=== PATIENT | female | born 1945 | race Caucasian/White ===

== ENCOUNTER 2024-09-26 16:03 | Emergency (ER) | payer OTHER, SELFPAY ==
[2024-09-26 16:25] VITALS: BP 158/89
[2024-09-26 17:09] LABS: ALT (SGPT) 18 U/L (0-35); AST (SGOT) 27 U/L (14-36); Albumin 4.3 g/dl (3.5-5.0); Alkaline Phosphatase 67 U/L (38-126); Blood Urea Nitrogen 17 mg/dl (7-17); Calcium 9.6 mg/dl (8.4-10.2); Carbon Dioxide 23 mmol/L (22-30); Chloride 109 mmol/L (98-107); Glucose 83 mg/dl (70-99); Potassium 4.1 mmol/L (3.5-5.1); Sodium 140 mmol/L (135-145); Total Bilirubin 0.6 mg/dl (0.2-1.3); Total Protein 7.6 g/dl (6.3-8.2); eGFR > 60.00
[2024-09-26 17:19] LABS: Troponin I < 0.012 ng/ml
[2024-09-26 17:30] LABS: % Basophils 0.5 % (0-2); % Immature Granulocytes 0.1 % (0-0.5); % Lymphocytes 25.7 % (20.5-51.1); % Neutrophils 59.7 % (42.2-75.2); Absolute Eosinophils 0.2 10^3/uL (0-0.7); Absolute Lymphocytes 1.9 10^3/uL (1.2-3.4); Absolute Monocytes 0.9 10^3/uL (0.1-0.6); Absolute Neutrophils 4.4 10^3/uL (1.4-6.5); Hematocrit 38.1 % (37.0-47.0); Hemoglobin 13.2 g/dL (12.0-16.0); Mean Corp Hgb Conc. 34.6 g/dL (33.0-37.0); Mean Corpuscular Hgb 31.3 pg (27.0-31.0); Mean Corpuscular Volume 90.3 fL (81.0-99.0); Nucleated Red Blood Cells % 0 %; Platelet Count 117 10^3/uL (130-400); Red Blood Cell Count 4.22 10^6/uL (4.20-5.40); Red Cell Dist. Width 13.8 % (11.5-14.5); White Blood Cell Count 7.4 10^3/uL (4.8-10.8)
[2024-09-26 20:00] VITALS: BP 166/87
--- NOTE | 2024-09-26 20:20 | ED.GENMED ---
History of Present Illness
General
Chief Complaint: Extremity Pain (non-traumatic)
Source: patient
Exam Limitations: none
Time Seen by Provider: 09/26/24 19:42
Nursing documentation reviewed up to this point in time: agreed with
History of Present Illness
History of Present Illness:
see MDM
Past History
Past History
ED Past Medical History: HTN, Other (MCNEAL-stopped going to [employer] [employer] at [facility] few yrs ago) and Other (neuropathy, balance problems)
ED Past Surgical History: Gynecological and Orthopedic
Social History
Tobacco: Non-smoker
Alcohol: None
Drug: None
Personal:
Living: with family
Employment: Employed
Family History
Family History: Hypertension
Review of Systems
Review of Systems
Allergies reviewed?: Yes
All Other Systems: Not applicable
Phy Exam
Physical Exam
Physical Exam:
GENERAL: Alert , in no apparent distress
EYE: pupils equal and reactive
NECK: Supple
ENT: o/p clr, mmm.
CARDIAC: Regular rate and rhythm .
LUNGS: Clear breath sounds bilaterally, no acute respiratory distress, no wheezes/rales/rhonchi
ABDOMEN: Soft, without focal tenderness, no r/g, no cvat, normal bowel sounds
NEUROLOGICAL: Alert and oriented, no focal neuro deficits
hyepracusis to touch of the skin around the rash L elbow and L upper back trapezius region
SKIN: Warm and dry, skin intact.
cluster of vesicles to L lateral elbow region along lateral epicondyle with erythematous base;
MUSCULOSKELETAL: no edema appreciated to L arm
'normal pulse
full ROM of the elbow but some pain with flexion and lateral epicondyle tenderness
no efffusino
left scapula also tender to touch but seems to be more skin sensitive
can fully range the arm and shoudler and neck
no midline tenderness
PSYCH: Normal and appropriate interaction.
Course
Orders/Labs/Results
Orders:
Orders
09/26/24 16:27
Electrocardiogram (*1) Urgent
Reason for Study: Chest Pain
EKG- Treatment ONCE
09/26/24 16:41
Complete Blood Count/With Diff Urgent
Comprehensive Metabolic Panel Urgent
Troponin I Urgent
09/26/24 20:02
Venous Doppler Upr Ext Left [US Periph Venous UPPER Ext LT] Urgent
Comment:
Reason For Exam: left arm swelling
09/26/24 20:03
CR Chest - 2 Views Urgent
Comment:
Reason For Exam: left sided chest/aack pain
Elbow, 3 view, Left [CR Elbow - Left Min 3 Views ] Urgent
Comment:
Reason For Exam: left elbow pain
09/26/24 21:34
Acetaminophen [Tylenol] 1,000 mg PO NOW STA
Valacyclovir HCl [Valtrex] 1,000 mg PO NOW STA
Abnormal Lab Results
09/26/24
16:41
MCH 31.3 H pg
(27.0-31.0)
Plt Count 117 L 10^3/uL
(130-400)
Absolute Monos (auto) 0.9 H 10^3/uL
(0.1-0.6)
Monocytes % 12.0 H %
(1.7-9.3)
Chloride 109 H mmol/L
(98-107)
09/26/24 16:41
09/26/24 16:41
Vital Signs
Initial and Last Documented VS:
Initial Vital Signs
Temp Pulse Resp BP Pulse Ox
36.9 C 82 18 158/89 98
09/26/24 16:25 09/26/24 16:25 09/26/24 16:25 09/26/24 16:25 09/26/24 16:25
Last Documented Vital Signs
Temp Pulse Resp BP Pulse Ox
36.9 C 74 18 140/66 98
09/26/24 16:25 09/26/24 22:48 09/26/24 22:48 09/26/24 22:48 09/26/24 22:48
MDM/Problems Addressed
Differential Diagnosis Includes:
see MDM
MDM/Problems Addressed:
Note:
CHIEF COMPLAINT(S)
Painful swelling and rash on the arm with radiation to the shoulder and back.
HISTORY OF PRESENT ILLNESS
The patient is a 79-year-old female who presents with a painful lesion and swelling on her arm, which she noticed upon waking. She describes a burning sensation upon touching the area and swelling of the arm. The pain radiates from her shoulder to
the back. She denies any recent trauma, falls, or significant outdoor activities that could have led to insect bites. The patient mentions it does not hurt when the area is touched, but she experiences discomfort when raising her arm above her head,
with pain from her neck to her shoulder blades. She speculates it could be a result of sleeping in an awkward position.
denies shortness of breath, fever, chills, h/o blood clots
CHRONIC MEDICAL CONDITIONS SIGNIFICANTLY AFFECTING CARE
The patient has a history of peripheral neuropathy, experiencing pain only upon touching her feet or legs. 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
PHYSICAL EXAM
- Skin: Rash on the arm with swelling.
- Musculoskeletal: Pain on movement, especially when raising the arm above the head; discomfort extending from neck to shoulder blades.
Nursing notes reviewed and vital signs reviewed.
PLAN
The plan should include further evaluation to confirm the diagnosis of shingles and management of the symptoms, considering potential antiviral treatment and pain management options.
DIFFERENTIAL DIAGNOSIS
The Differential Diagnosis includes, in no particular order and is not limited to:
1. Herpes Zoster (Shingles)
2. Insect Bite
3. Contact Dermatitis
4. Cellulitis
5. Tendinitis
6. Cervical Radiculopathy
7. Brachial Plexopathy
8. Rotator Cuff Tear
9. Herpes Simplex Virus Infection
10. Lymphedema
Note:
CARE-UPDATE
09/26/24 - 22:48
Ultrasound shows no clot, and x-ray confirms old compression fractures without any new findings. A tiny sliver of bone near the right elbow, suspected to be an avulsion, noted; potentially linked to calcification or past trauma like the arm fracture
three years ago. The pain considered possibly due to calcific tendinitis rather than an active fracture. Suspicion of shingles due to tenderness and sensitivity around the area, with advice to monitor for associated rash. Recommended using a sling
for comfort if desired, but patient might find it irritating against the sensitive skin. Emphasis on managing pain with Advil due to preference and liver considerations. No significant intervention for peripheral neuropathy signs discussed, though
monitoring suggested, particularly if signs of a rash develop or systemic symptoms appear, such as fever or shortness of breath. Follow-up with family doctor advised.
*Critical Care Note
Total Time (30-74mins, 75-104mins- exclusive of procedures): Not Applicable
ED Attending Note
-
Portions of this chart may have been created with voice recognition software.� Occasional wrong word or��sound alike� substitutions may have occurred due to the inherent limitations of voice recognition software.
Discharge Plan
Departure
Patient Disposition: Home (Routine Discharge)
Date of Disposition: 09/26/24
Time of Disposition: 22:48
Patient with high blood pressure during this ER visit?: Yes
Condition: Fair
Covid-19: Not Applicable
Discharge Problem:
Shingles, Elbow pain
Instructions: Shingles, BLOOD PRESSURE
Prescriptions:
New
valacyclovir 1 gram tablet
1,000 mg PO Q8H Qty: 21 0RF
No Action
ondansetron 4 MG tablet,disintegrating
4 mg PO TIDPRN PRN (Reason: NAUSEA) Qty: 21 0RF
tramadol 50 MG tablet
50 mg PO Q6HPRN PRN (Reason: severe pain) Qty: 12 0RF
Referrals:
Gustavo Kumar MD [Family Provider, [facility]]
Activity Restrictions/Additional Instructions:
This rash is very suspicious for shingles. You are sensitive to touch in this area and the x-ray did show a tiny sliver off of the radial head that could be an avulsion fracture however you had no trauma recently so this is less likely. You could
have a calcific tendinitis there. However I do feel that most of your pain is just nerve related due to the shingles. Try Valtrex 3 times a day for 7 days. Take ibuprofen every 8 hours for pain. Follow-up with your family doctor. Have a low
threshold for returning for fever, chest pain, worsening shortness of breath or arm swelling or weakness etc.
You can consider following up with orthopedics due to the elbow pain and x-ray finding as well. You could wear the sling for couple of days to see if this helps with pain
. Be sure to move your shoulder every now and then to avoid frozen shoulder.
Interventions
Interventions:
*Risk Screen - Suicide Last Done: 09/26/24 20:30
*General Assessment Last Done: 09/26/24 20:30
*Neglect/Abuse Screening Last Done: 09/26/24 20:30
*ED- Fall Risk Assessment Last Done: 09/26/24 20:30
*ED COVID-19 Vaccine History Last Done: 09/26/24 20:30
*Nursing Disposition Last Done: 09/26/24 23:00
ED-Skin Assessment Last Done: 09/26/24 20:30
ED-Peripheral Vascular Assessment Last Done: 09/26/24 20:30
ED-Musculoskeletal Assessment Last Done: 09/26/24 20:30
Discharge Date and Time
Discharge Date/Time: 09/26/24 23:00
Print Language: [place]
[2024-09-26] MEDS: TYLENOL 1000 MG PO (21:55)
[2024-09-26] MEDS: VALTREX 1000 MG PO (21:56)
[2024-09-26 22:00] VITALS: BP 161/78
[2024-09-26 22:48] VITALS: BP 140/66
== END 2024-09-26 23:00 | disposition home or self-care (01) ==
LOC: EMR 16:03
PROVIDERS: EMERGENCY PHYSICIAN Emergency Medicine; FAMILY PHYSICIAN Family Medicine
DX: B02.9 Zoster without complications (principal); M25.522 Pain in left elbow; M79.89 Other specified soft tissue disorders; M54.2 Cervicalgia; M79.602 Pain in left arm; M54.6 Pain in thoracic spine; I10 Essential (primary) hypertension; K75.81 Nonalcoholic steatohepatitis (NASH); G62.9 Polyneuropathy, unspecified
CPT/HCPCS: 99285; 71046; 73080; 80053; 84484; 85025; 93005; 93971

== ENCOUNTER 2025-01-01 23:40 | Inpatient (IN) | payer OTHER, SELFPAY ==
[2025-01-01 14:25] VITALS: BP 150/90
[2025-01-01] MEDS: NSS 500 IV (15:23)
--- NOTE | 2025-01-01 15:31 | ED.GENMED ---
History of Present Illness
<SIMONE Perez Jr. Last Filed: 01/01/25 23:07>
General
Chief Complaint: Abdominal Pain
Source: patient
Exam Limitations: none
Time Seen by Provider: 01/01/25 15:05
Nursing documentation reviewed up to this point in time: agreed with
History of Present Illness
History of Present Illness:
79-year-old female past ministry of hypertension presenting to the emergency department today with concerns of upper abdominal pain starting last night with associated nausea and vomiting. Vomiting total of 10 times no blood no additional concerns.
No diarrhea or changes in bowel movements. No fevers no chest pain no shortness of breath. Denies similar symptoms in the past.
Past History
<SIMONE Perez Jr. Last Filed: 01/01/25 23:07>
Past History
ED Past Medical History: HTN, Other (MCNEAL-stopped going to Cardiac [facility] at [facility] few yrs ago) and Other (neuropathy, balance problems)
ED Past Surgical History: Gynecological and Orthopedic
Social History
Tobacco: Non-smoker
Alcohol: None
Drug: None
Personal:
Living: with family
Employment: Employed
Family History
Family History: Hypertension
Review of Systems
<SIMONE Perez Jr. Last Filed: 01/01/25 23:07>
Review of Systems
Allergies reviewed?: Yes
All Other Systems: ROS reviewed and negative except as documented in HPI and ROS
Phy Exam
<SIMONE Perez Jr. Last Filed: 01/01/25 23:07>
Physical Exam
Physical Exam:
GENERAL: Alert , in no apparent distress
EYE: pupils equal and reactive
NECK: Supple, no significant adenopathy.
ENT: o/p clr, mmm.
CARDIAC: Regular rate and rhythm .
LUNGS: Clear breath sounds bilaterally, no acute respiratory distress, no wheezes/rales/rhonchi
ABDOMEN: Epigastric and right upper quadrant abdominal tenderness to palpation otherwise soft abdomen
NEUROLOGICAL: Alert and oriented, no focal neuro deficits
SKIN: Warm and dry, skin intact.
MUSCULOSKELETAL: No edema, well perfused.
PSYCH: Normal and appropriate interaction.
Course
<Bassem Lima Jr., PA-C - Last Filed: 01/01/25 23:07>
Orders/Labs/Results
Orders:
Orders
01/01/25 14:28
Electrocardiogram (*1) Urgent
Reason for Study: Chest Pain
Cardiac Monitoring- Treatment ONCE
EKG- Treatment ONCE
O2 Therapy [RESP] Urgent
Titrate/Wean O2 to maintain O2 sat greater than (%): 90
Special Instructions: Maintain sats >/=90%
Pulse Ox/spot Check [RESP] Urgent
Quantity: 1
Special Instructions: ON ROOM AIR
01/01/25 15:17
Ketorolac [Toradol] 15 mg IV NOW STA
01/01/25 15:18
CT Abd/Pel (IV only)-DH only Urgent
Comment:
Reason For Exam: upper abd/diffuse pain
0.9% Sodium Chloride 500 ml [Nss] 500 ml IV BOLUS
01/01/25 15:21
Complete Blood Count/With Diff Urgent
Comprehensive Metabolic Panel Urgent
Lipase Urgent
Manual Differential Urgent
Troponin I Urgent
01/01/25 18:48
US Abdomen Complete/Upper Urgent
Comment:
Reason For Exam: RUQ pain abnormal CT
01/01/25 19:23
Lactic Acid Urgent
01/01/25 21:53
Ketorolac [Toradol] 15 mg IV NOW STA
Piperacillin/Tazo 4.5 Gram [Zosyn] 4.5 gram in 100 ml IV NOW
01/01/25 22:03
Chest X-ray Portable [CR Chest Portable - 1 View] Urgent
Comment:
Reason For Exam: sob
Reason Study Needs to be Portable: Patient Unstable
Abnormal Lab Results
01/01/25
15:21
WBC 20.2 H 10^3/uL
(4.8-10.8)
MPV 13.9 H fL
(7.4-10.4)
Abs Neuts (Manual) 16.9 H 10^3/uL
(1.4-6.5)
Segmented Neutrophils 84 H %
(42-75)
Lymphocytes (Manual) 10 L %
(20-51)
Sodium 134 L mmol/L
(135-145)
Glucose 138 H mg/dl
(70-99)
01/01/25 15:21
01/01/25 15:21
Vital Signs
Initial and Last Documented VS:
Initial Vital Signs
Temp Pulse Resp BP Pulse Ox
99.9 F 127 18 150/90 94
01/01/25 14:25 01/01/25 14:25 01/01/25 14:25 01/01/25 14:25 01/01/25 14:25
Last Documented Vital Signs
Temp Pulse Resp BP Pulse Ox
99.9 F 97 27 141/82 94
01/01/25 14:25 01/01/25 22:00 01/01/25 22:00 01/01/25 22:00 01/01/25 17:15
Lottielt;eJsús Alejo DO - Last Filed: 01/01/25 22:05>
Orders/Labs/Results
Orders:
Orders
01/01/25 14:28
Electrocardiogram (*1) Urgent
Reason for Study: Chest Pain
Cardiac Monitoring- Treatment ONCE
EKG- Treatment ONCE
O2 Therapy [RESP] Urgent
Titrate/Wean O2 to maintain O2 sat greater than (%): 90
Special Instructions: Maintain sats >/=90%
Pulse Ox/spot Check [RESP] Urgent
Quantity: 1
Special Instructions: ON ROOM AIR
01/01/25 15:17
Ketorolac [Toradol] 15 mg IV NOW STA
01/01/25 15:18
CT Abd/Pel (IV only)-DH only Urgent
Comment:
Reason For Exam: upper abd/diffuse pain
0.9% Sodium Chloride 500 ml [Nss] 500 ml IV BOLUS
01/01/25 15:21
Complete Blood Count/With Diff Urgent
Comprehensive Metabolic Panel Urgent
Lipase Urgent
Manual Differential Urgent
Troponin I Urgent
01/01/25 18:48
US Abdomen Complete/Upper Urgent
Comment:
Reason For Exam: RUQ pain abnormal CT
01/01/25 19:23
Lactic Acid Urgent
01/01/25 21:53
Ketorolac [Toradol] 15 mg IV NOW STA
Piperacillin/Tazo 4.5 Gram [Zosyn] 4.5 gram in 100 ml IV NOW
01/01/25 22:03
Chest X-ray Portable [CR Chest Portable - 1 View] Urgent
Comment:
Reason For Exam: sob
Reason Study Needs to be Portable: Patient Unstable
Abnormal Lab Results
01/01/25
15:21
WBC 20.2 H 10^3/uL
(4.8-10.8)
MPV 13.9 H fL
(7.4-10.4)
Abs Neuts (Manual) 16.9 H 10^3/uL
(1.4-6.5)
Segmented Neutrophils 84 H %
(42-75)
Lymphocytes (Manual) 10 L %
(20-51)
Sodium 134 L mmol/L
(135-145)
Glucose 138 H mg/dl
(70-99)
01/01/25 15:21
01/01/25 15:21
Vital Signs
Initial and Last Documented VS:
Initial Vital Signs
Temp Pulse Resp BP Pulse Ox
99.9 F 127 18 150/90 94
01/01/25 14:25 01/01/25 14:25 01/01/25 14:25 01/01/25 14:25 01/01/25 14:25
Last Documented Vital Signs
Temp Pulse Resp BP Pulse Ox
99.9 F 97 27 141/82 94
01/01/25 14:01/01/25 22:00 01/01/25 22:00 01/01/25 22:00 01/01/25 17:15
<Bassem Lima Jr., PA-C - Last Filed: 01/01/25 23:07>
MDM/Problems Addressed
MDM/Problems Addressed:
79-year-old female presenting to the emergency department today with concerns of upper abdominal pain maximal to the right upper quadrant and epigastric region. Symptoms started last night roughly 16 hours prior to arrival associated nausea and
vomiting. No ongoing nausea at this point. Patient with recurrent of right upper quadrant abdominal pain here requiring additional dose of Toradol. CT scan showing concerning findings of potential early acute cholecystitis radiology recommending
ultrasound. This was ordered as well. Technically difficult study to read but did have some gallbladder wall thickening. Case was discussed with general surgery patient will be admitted with IV antibiotics and monitoring for surgical consultation
tomorrow.
<Bassem Lima Jr., PA-C - Last Filed: 01/01/25 23:07>
*Pulse Oximetry
SaO2: 94
Oxygen Mode of Delivery: Room air
Patient hypoxic: no (94)
*Critical Care Note
Total Time (30-74mins, 75-104mins- exclusive of procedures): Not Applicable
ED Attending Note
<Bassem Lima Jr., PA-C - Last Filed: 01/01/25 23:07>
-
Portions of this chart may have been created with voice recognition software.� Occasional wrong word or��sound alike� substitutions may have occurred due to the inherent limitations of voice recognition software.
<Jesús Alejo DO - Last Filed: 01/01/25 22:05>
ED Attending Note
Patient seen and examined by attending physician: Yes
I performed the substantive portion of visit, reviewed & personally made and approve the management plan that is documented in note by myself or BOGDAN.: Yes
I performed a history and physical exam of patient and discussed management with resident, I reviewed resident's note and agree with documented findings and plan of care.: Yes
ED Attending Note:
79-year-old female presents the ER for evaluation of upper abdominal discomfort along with repetitive emesis which started last night after she had eaten some broiled zucchini with bread. Patient denies any prior history of similar discomforts.
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 She denies any fevers. Vital signs reviewed, patient is awake, alert, obese, appears uncomfortable with mild tachypnea at time of
exam, sclera anicteric, mucous membranes tacky, abdomen is soft with localized pain on palpation right upper quadrant, positive Munson's, extremities without edema, GCS is 15. I reviewed all test results with physician phys assistant. Case had been
reviewed with on-call surgeon by JOSE who is in agreement with plan for admission to medicine service for further evaluation. IV abx administered. Will add chest x-ray given tachypnea and mild hypoxia at current.
Discharge Plan
Departure
Patient Disposition: Admit
Date of Disposition: 01/01/25
Time of Disposition: 23:07
Admit to: Med/Surg
Admit to doctor: Familia
Presentation/result/management discussed w/ accepting MD/DO: Hospitalist
Patient with high blood pressure during this ER visit?: No
Condition: Good
Covid-19: Not Applicable
Discharge Problem:
Acute cholecystitis
Prescriptions:
No Action
lisinopril 20 mg Tablet
20 mg PO DAILY
Rx Instructions:
pt has been noncompliant for several months
Referrals:
Maurizio Blake, [Family Provider, Family Practice]
Interventions
Interventions:
*Risk Screen - Suicide Last Done: 01/01/25 14:25
*General Assessment Last Done: 01/01/25 17:06
*Neglect/Abuse Screening Last Done: 01/01/25 17:06
*ED- Fall Risk Assessment Last Done: 01/01/25 17:06
*ED COVID-19 Vaccine History Last Done: 01/01/25 17:06
FX-Hccfql-Lenfiuwy[facility] Assessment Last Done: 01/01/25 17:06
Discharge Date and Time
Print Language: UKRAIN[place]
[2025-01-01] MEDS: TORADOL 15 MG IV ×2 (15:32→21:59)
[2025-01-01 15:59] LABS: Hematocrit 41.3 % (37.0-47.0); Hemoglobin 14.2 g/dL (12.0-16.0); Mean Corp Hgb Conc. 34.4 g/dL (33.0-37.0); Mean Corpuscular Volume 90.2 fL (81.0-99.0); Platelet Count 143 10^3/uL (130-400); Red Cell Dist. Width 12.8 % (11.5-14.5)
[2025-01-01 16:03] LABS: Absolute Neutrophils -Man Diff 16.9 10^3/uL (1.4-6.5); Anisocytosis Slight; Macrocytosis 1+; Normal RBC Morphology No; Platelets Checked Yes
[2025-01-01 16:07] LABS: Stomatocytes 1+; Total Cells Counted 100
[2025-01-01 16:08] LABS: ALT (SGPT) 18 U/L (0-35); AST (SGOT) 31 U/L (14-36); Albumin 4.4 g/dl (3.5-5.0); Alkaline Phosphatase 58 U/L (38-126); Blood Urea Nitrogen 13 mg/dl (7-17); Calcium 10.1 mg/dl (8.4-10.2); Carbon Dioxide 22 mmol/L (22-30); Chloride 102 mmol/L (98-107); Glucose 138 mg/dl (70-99); Lipase 85 U/L (23-300); Potassium 4.3 mmol/L (3.5-5.1); Sodium 134 mmol/L (135-145); Total Protein 8.1 g/dl (6.3-8.2); eGFR > 60.00
[2025-01-01 16:09] LABS: Troponin I 0.012 ng/ml
[2025-01-01 17:11] VITALS: BP 123/71
[2025-01-01 17:14] VITALS: BMI 32.3
[2025-01-01 22:00] VITALS: BP 141/82
[2025-01-01] MEDS: ZOSYN 100 IV (22:00)
[2025-01-01 23:00] VITALS: BP 125/62
--- NOTE | 2025-01-01 23:21 | HPS.HSE ---
Addendum entered and electronically signed by Nadeem Barbosa DO 01/02/25 00:02:
Patient seen and examined independently. Agree with findings and plan as set forth by SARY De La Rosa.
Patient is a 79y F with PMH significant for obesity, hypertension and peripheral neuropathy who presents to ED complaining of RUQ abdominal pain with associated N/V that started last evening. Patient states that emesis was frequent and persisted
overnight. She had intermittent pain and nausea throughout the day today ans presented to the ED for further evaluation. No subjective fevers / chills. No prior h/o similar symptoms.
Evaluation in the ED reveals RUQ tenderness with imaging suggesting gallbladder inflammation.
Ass:
Acute Cholecystitis
Sepsis secondary to the above
Benign Hypertension
Peripheral Neuropathy
Chronic Ambulatory Dysfunction
Obesity due to excess calories
Plan:
Admit for further evaluation and treatment.
NPO, IVFs, IV abx.
Surgery consulted for additional recommendations / probable cholecystectomy.
Continue outpatient lisinopril with holding parameters.
Pain control, supportive care, etc.
Original Note:
Family Physician
-
Family Physician: Maurizio Blkae
Chief Complaint
-
Right upper quadrant or left upper quadrant pain with nausea and vomiting since last night
History of Present Illness
79-year-old female who lives alone at home states she had zucchini roasted in the oven for dinner then around 10:30 at night she developed right upper quadrant pain extending to left upper quadrant with persistent vomiting until 5:30 in the AM.She
reports pain still persisted today along with nausea. She denies fever, chills, chest pain, palpitations, cough, shortness of breath, diarrhea, urinary symptoms. She has past medical history of hypertension, peripheral neuropathy, frequent falls,
chronic ambulatory dysfunction uses walker, hepatomegaly/MCNEAL.
Medical History
Past Medical History
Past Medical History: Reports Other
Additional Past Medical History:
Hypertension
Hepatomegaly/MCNEAL used to follow at [facility] but stopped
Peripheral neuropathy
Frequent falls
Chronic ambulatory dysfunction uses wheelchair
Class I obesity
Past Surgical History: Reports Other
Additional Past Surgical History:
Left knee surgery
Right ankle and heel repair
Social History
Tobacco: Non-smoker
Alcohol: None
Drug: None
Personal: Single
Living: Alone
Employment: Retired
Family History
Family History: Other (Sister history of gallstones status postcholecystectomy)
Allergies / Home Medications
Allergies reflects when Allergies were last updated in [facility].
Home Medications with original date entered in [facility]
Allergy/Medication List:
Allergies
Allergy/AdvReac Type Severity Reaction Status Date / Time
No Known Allergies Allergy Verified 12/22/13 15:48
Home Medications
lisinopril 20 mg tablet 20 mg PO DAILY 01/01/25
Review of Systems
-
History Source: Patient
A 12 point ROS was completed and negative except as noted: Yes
Constitutional: Denies Fever or Chills
Respiratory: Denies Cough or Trouble Breathing
Cardiac: Denies Chest Pain, Diaphoresis, Palpitations or Syncope
Abdomen/GI: Reports Abdominal Pain (Right upper quadrant to left upper quadrant), Nausea and Vomiting; Denies Diarrhea or Constipated
: Denies Dysuria, Frequency, Flank Pain, Incontinence or Difficulty Voiding
Musculoskeletal: Reports Edema (+1 nonpitting bilateral lower legs); Denies Joint Pain
Skin: Denies Itching or Rash
Neurological: Denies Dizzy or Headache
Endocrine: Reports No Symptoms
Hematologic/Lymphatic: Reports No Symptoms
Psych: Reports Calm
Physical Exam
Vital Signs
Vital Signs
Temp Pulse Resp BP Pulse Ox
99.9 F 97 27 141/82 94
01/01/25 14:25 01/01/25 22:00 01/01/25 22:00 01/01/25 22:00 01/01/25 17:15
Physical Exam
General: Fever (99.9 F) and Obese; No Chills
HEENT: NormoCephalic, Anicteric, PERRLA, [place] Conjunctivae, No Ptosis and Other (Dry oral mucosa)
Respiratory: Clear; No Wheezes, Rales or Rhonchi
Cardiac: S1/S2, Regular Rhythm and Peripheral Edema (+1 nonpitting bilateral lower legs); No Murmur, Rub or Gallop
Breast: Deferred by me
GI: Soft, Non Distended, Normal Bowel Sounds, Tender (Right upper quadrant) and No Hepatosplenomegaly
Rectal: Deferred by Provider
Genito-urinary: Deferred by me
Musculoskeletal: No Clubbing, No Cyanosis, Edema, Left Lower Extremity (+1 nonpitting) and Edema, Right Lower Extremity (+1 nonpitting); No Edema, Left Upper Extremity or Edema, Right Upper Extremity
Skin: Warm and Dry; No Rash or Jaundice
Neuro: AO x 3, Cranial Nerves Intact and Other (Chronic ambulatory dysfunction due to peripheral neuropathy/falls uses wheelchair); No Slurred Speech, Facial Droop, Tremors or Sedated
Psych: Calm
Laboratory Results
-
01/01/25 15:21
01/01/25 15:21
Laboratory Results
Lactic Acid 1.1 mmol/L (0.7-2.0) 01/01/25 19:23
Total Bilirubin 1.3 mg/dl (0.2-1.3) 01/01/25 15:21
AST 31 U/L (14-36) 01/01/25 15:21
ALT 18 U/L (0-35) 01/01/25 15:21
Alkaline Phosphatase 58 U/L (38-126) 01/01/25 15:21
Troponin I 0.012 ng/ml 01/01/25 15:21
Lipase 85 U/L (23-300) 01/01/25 15:21
Data Reviewed
-
CT Scan: Report Reviewed by me
Lab Data: Labs Reviewed by me
Impression/Plan
-
Impression/plan:
Admit to [facility]
#Sepsis 2/2 acute cholecystitis
#History of hepatomegaly/MCNEAL used to follow at [facility] but stopped
WBC 20.2 with left shift, 99.9 F, HR 97, lactic acid 1.1
-Check lipid profile
-Consult general surgery-Dr. Velázquez aware
- ultrasound abdomen was attempted but patient had difficulty with exam
-N.p.o.
-IV NSS 1 L given in ER, continue IV NSS 80 cc an hour
- IV Toradol given in ER
- Tylenol for fever, Toradol moderate pain, Dilaudid severe pain
- IV Zosyn
-Follow CBC, CMP
CT abdomen pelvis:
1. Gallstones. Increased in number. Questionable secondary findings to suggest
acute cholecystitis. New. Abdominal ultrasound recommended.
2. Bilateral too small to characterize hypodense renal lesions likely benign cysts.
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 Stable
3. Mild diverticulosis. Stable
4. Hepatomegaly. Stable
#Hypertension
BP 141/82
Continue lisinopril 20 mg daily
#Peripheral neuropathy
#Frequent falls
#Chronic ambulatory dysfunction uses wheelchair
-Fall precautions
- Consult PT
#Class I obesity�BMI 32
Affects all aspects of care
Weight loss recommended
DVT prophylaxis
Subcu heparin
Full code
[2025-01-02] VITALS: BP 116/59
[2025-01-02 01:08] VITALS: BMI 33.2
[2025-01-02] MEDS: NSS 1000 IV ×2 (01:21→15:23)
[2025-01-02 01:22] VITALS: BP 137/65
--- NOTE | 2025-01-02 01:40 | PTCARENOTE ---
Pt arrived to 2 South from ED via personal wheelchair @ 0108. Stood and pivoted assist x1 to bed w/o complication. AAOx3. Pt c/o sob as well as having an audible wheeze on RA sating at 91%. 2L nc applied. Admission assessment completed. IVF
initiated per order. NPO for surgical consult and possible OR. Plan of care reviewed w/ pt. Pt oriented to room, call calhoun within reach, bed locked and in lowest position. Care ongoing.
[2025-01-02] MEDS: ZOSYN 50 IV ×4 (03:05→22:24)
[2025-01-02] MEDS: DILAUDID 0.5 MG IV ×2 (03:59→20:53)
--- NOTE | 2025-01-02 05:54 | PTCARENOTE ---
Addendum entered by Mell Dominguez RN 01/02/25 06:23:
After duoneb treatment, pt more comfortable. Toradol given for pain. Oxygen sat 96% on 3L nc. Care ongoing.
Original Note:
Pt c/o extreme shortness of breath. Oxygen sat was 88% on 2L nc. Re-positioned pt upright in bed, put her on 4L nc. Oxygen sat went to 95%. Educated pt on breathing in through nose. [employer] TECHNICIAN notified and aware of change. Duoneb ordered. Respiratory
notified via TT. Pt to remain on 4L nc. Care ongoing.
[2025-01-02] MEDS: DUONEB 3 ML INH (06:05)
[2025-01-02] MEDS: TORADOL 15 MG IV (06:18)
[2025-01-02 07:00] LABS: Hematocrit 38.1 % (37.0-47.0); Hemoglobin 13.2 g/dL (12.0-16.0); Mean Corp Hgb Conc. 34.6 g/dL (33.0-37.0); Mean Corpuscular Volume 92.9 fL (81.0-99.0); Nucleated Red Blood Cells % 0 %; Platelet Count 108 10^3/uL (130-400); Red Cell Dist. Width 13.0 % (11.5-14.5)
[2025-01-02 07:05] VITALS: BP 128/71
[2025-01-02 07:13] LABS: ALT (SGPT) 18 U/L (0-35); AST (SGOT) 29 U/L (14-36); Albumin 3.8 g/dl (3.5-5.0); Alkaline Phosphatase 60 U/L (38-126); Calcium 9.4 mg/dl (8.4-10.2); Carbon Dioxide 26 mmol/L (22-30); Chloride 104 mmol/L (98-107); Estimated Creatinine Clearance 50 ml/min; Glucose 114 mg/dl (70-99); HDL Cholesterol 36 mg/dl; LDL Cholesterol, Calculated 76 mg/dl; Potassium 4.2 mmol/L (3.5-5.1); Sodium 136 mmol/L (135-145); Total Protein 7.1 g/dl (6.3-8.2); Very Low Density Lipoprotein 17 mg/dl (0-30); eGFR 58.02
[2025-01-02 07:21] LABS: Blood Urea Nitrogen 18 mg/dl (7-17)
[2025-01-02 07:32] LABS: Reticulocyte Count 2.5 % (0.4-2.8)
[2025-01-02 07:54] LABS: LDH 207 U/L (120-246)
--- NOTE | 2025-01-02 08:16 | W.PN.HOSP.TC ---
Today's Communication/Plan
-
see PN
Assessment / Plan
Assessment / Plan
79yo F with PMHx of HTN came with 48h of RUQ abd pain and vomiting, presenting with classic clinical signs of cholecystitis
A/P:
#Acute cholecystitis
#Mild bilirubinemia
CT and US abd showed concern for cholecystitis, however no stones identified
Discussed elevated bili with GenSx - will need periOP cholangiogram
cont Abx
NPO and advance diet when appropriate
ZOsyn
Follow LFT
pain mgmt and antiemetics
#Essential HTN
cont lisinopril
DVT ppx hep
Full code
I have spent at least 51min reviewing chart, test results, communication with consultants and providing direct patient care
Anticipated Discharge: > 48 hours
Subjective/Interval History
-
Date of Service: January 02, 2025
Objective Data
-
Labs:
Laboratory Results
01/02/25
06:37
WBC 17.1 H
Hgb 13.2
Hct 38.1
Plt Count 108 L D
Sodium 136
Potassium 4.2
Chloride 104
Carbon Dioxide 26
BUN 18 H
Creatinine 1.0
Glucose 114 H
Calcium 9.4
Total Bilirubin 1.9 H
AST 29
ALT 18
Alkaline Phosphatase 60
Vital Signs:
Vital Signs
Temp Pulse Resp BP Pulse Ox
97.9 F 82 22 137/65 95
01/02/25 01:22 01/02/25 06:09 01/02/25 06:09 01/02/25 01:22 01/02/25 06:09
I&O
01/01/25 01/02/25 01/03/25
06:59 06:59 06:59
Intake Total 450 / 450
Balance 450 / 450
Review of Systems
-
History Source: Patient
All other systems: Reviewed and negative
Abdomen/GI: Reports Abdominal Pain and Vomiting
Physical Exam
-
General: No Apparent Distress
HEENT: Normocephalic
Respiratory: Clear to Auscultation
Cardiac: Regular Rhythm
GI: Tender (RUQ)
Skin: Warm
Neuro: Awake, Alert, Oriented and AO x 3
Psych: Calm
[2025-01-02] MEDS: HEPARIN 5000 UNITS SC ×2 (08:56→20:50)
[2025-01-02] MEDS: ZESTRIL PO (08:57)
--- NOTE | 2025-01-02 08:57 | CON.GS ---
Consultation
-
Date/Time Consultation Requested: 01/01/2025, 23:39
Date/Time Consultation Performed: 01/01/2025, 08:00
Requesting Provider: Zofia Mccullough
Performing Provider: Ciro Velázquez MD
Reason for Consultation: acute cholecystitis
Medical History
-
Chief Complaint: RUQ pain
History of Present Illness:
79yo female with a PMH of MCNEAL, peripheral neuropathy and obesity presents to [place] [facility] late last night complaining of RUQ pain. It started after she at dinner around 10:30pm two nights ago. The pain started in the RUQ and extended to LUQ. She
vomited until yesterday AM. The rest of the day she had persistent nausea. In the ER her WBC was 20.2. CT A/P showed Gallstones. Increased in number. Questionable secondary findings to suggest acute cholecystitis. New. Bilateral too small to
characterize hypodense renal lesions likely benign cysts. 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 Stable. She then underwent an ultrasound which showed ' Somewhat limited evaluation of the soft tissues the upper abdomen
including the liver and gallbladder without findings to confirm cholelithiasis although limited. Visualized gallbladder wall mildly thickened at 0.4 cm. Indeterminate sonographic Munson's sign. No findings to suggest biliary tract dilatation'. Today
her WBC is down to 17.1. Her vitals remain normal. Given these findings, we have been consulted for surgical opinion.
Past Medical History
Past Medical History: HTN and Other (Hepatomegaly/MCNEAL, Peripheral neuropathy, Chronic ambulatory dysfunction, obesity)
Past Surgical History: Other (Left knee surgery, Right ankle and heel repair)
Social History
Tobacco: Non-Smoker
Alcohol: None
Drug: None
Family History
Family History: Reviewed & Not Pertinent
Allergies / Home Medications
Allergy/AdvReac Type Severity Reaction Status Date / Time
No Known Allergies Allergy Verified 12/22/13 15:48
�Medication �Instructions �Recorded �Confirmed �Type
lisinopril 20 mg tablet 20 mg PO DAILY 01/01/25 01/01/25 History
Review of Systems
-
History Source: Patient
Abdomen/GI: Abdominal Pain (RUQ), Nausea and Vomiting
A 10 point review of systems was completed, and was negative except as per HPI.
Physical Exam
Vital Signs
Temp Pulse Resp BP Pulse Ox
97.9 F 82 22 137/65 95
01/02/25 01:22 01/02/25 06:09 01/02/25 06:09 01/02/25 01:22 01/02/25 06:09
01/01/25 01/02/25 01/03/25
06:59 06:59 06:59
Actual Weight 87.6 kg
Body Mass Index (BMI) 33.2
Lab Results
01/02/25 06:37
01/02/25 06:37
WBC 17.1 10^3/uL (4.8-10.8) H 01/02/25 06:37
Hgb 13.2 g/dL (12.0-16.0) 01/02/25 06:37
Hct 38.1 % (37.0-47.0) 01/02/25 06:37
Plt Count 108 10^3/uL (130-400) L D 01/02/25 06:37
Abs Immat Gran (auto) 0.1 10^3/uL (0-0.05) H 01/02/25 06:37
Neutrophils % 86.2 % (42.2-75.2) H 01/02/25 06:37
Physical Exam
General: Well Developed and Well Nourished
GI: Soft, Non Tender and Non Distended
Skin: Warm and Dry
Neuro: AO x 3
Psych: Calm
Data Reviewed
-
CT Scan: Image Personally Visualized and interpreted, Report Reviewed by me and Discussed with Patient
Medical Tests (Nuc Med, Echo etc): Image Personally Visualized and interpreted
Labs: Labs Reviewed by me, Discussed with Physician and Discussed with Patient
Old Records: Reviewed
Assessment / Plan
-
Assessment: 79yo female with sudden RUQ and vomiting with acute cholecystitis
Plan:
-Plan for OR tomorrow with general surgery
-Continue IV antibiotics
-Pre-op labs ordered
-Maintain IVFs
-Pain control: Tylenol PRN, Morphine/Dilaudid PRN
-Type and screen ordered for AM
[2025-01-02 11:19] VITALS: BP 126/75; PULSE 85; O2SAT 95
--- NOTE | 2025-01-02 12:36 | CM ---
Patient seen at bedside on . Patient states that she lives in an in law suite with her daughter in the big house. Patient has a wheelchair and has been at [facility] in the past as well as having had VN but cannot recall name of company.
Patient PCP is Dr. Blake and she uses the [facility] in [place]. Patient uses [employer] to go to appointments and does not drive. Patient is currently on O2 and does not have any home O2 prior to admission. Patient is open to SNF if therapy recommends it
but first choice would be home. CM will continue to follow for discharge planning needs.
Plan;SNF vs home with VN; pending medical treatment plan following surgery
[2025-01-02 13:27] LABS: Urine Character Clear (Clear)
[2025-01-02 15:20] VITALS: BP 155/76
[2025-01-02] MEDS: MORPHINE SULFATE 2 MG IV (16:32)
--- NOTE | 2025-01-02 19:28 | PTCARENOTE ---
Patient only had 300 ml of urine for the shift. PVR 0. Urine concentrated. Dr. Pemberton made aware. IVF increased to 100 ml/ hr.
[2025-01-02 23:06] VITALS: BP 141/75
[2025-01-03] VITALS (17 sets, daily range): BP systolic 124–165; BP diastolic 59–104
[2025-01-03] MEDS: NSS 1000 IV (03:36)
[2025-01-03] MEDS: ZOSYN 50 IV ×3 (03:37→21:46)
[2025-01-03 07:58] LABS: ALT (SGPT) 18 U/L (0-35); AST (SGOT) 23 U/L (14-36); Albumin 3.3 g/dl (3.5-5.0); Alkaline Phosphatase 77 U/L (38-126); Blood Urea Nitrogen 18 mg/dl (7-17); Calcium 8.9 mg/dl (8.4-10.2); Carbon Dioxide 26 mmol/L (22-30); Chloride 106 mmol/L (98-107); Estimated Creatinine Clearance 56 ml/min; Glucose 88 mg/dl (70-99); Potassium 3.7 mmol/L (3.5-5.1); Sodium 139 mmol/L (135-145); Total Protein 6.4 g/dl (6.3-8.2); eGFR > 60.00
[2025-01-03 08:24] LABS: Hematocrit 35.4 % (37.0-47.0); Hemoglobin 11.8 g/dL (12.0-16.0); Mean Corp Hgb Conc. 33.3 g/dL (33.0-37.0); Mean Corpuscular Volume 94.9 fL (81.0-99.0); Nucleated Red Blood Cells % 0 %; Platelet Count 89 10^3/uL (130-400); Red Cell Dist. Width 13.0 % (11.5-14.5)
[2025-01-03] MEDS: HEPARIN 5000 UNITS SC ×2 (08:46→19:54)
[2025-01-03] MEDS: ZESTRIL 20 MG PO (08:46)
[2025-01-03 09:19] LABS: INR 1.22; PT 15.7 Sec (11.4-14.6)
[2025-01-03 09:20] LABS: APTT 31.4 Sec (23.4-35.0)
--- NOTE | 2025-01-03 10:23 | CM ---
Reviewed the chart notes. Patient is scheduled for cholecystectomy today. CM continues to be available to patient/family and is monitoring medical plan for needs at discharge.
Plan: Discharge plans will depend on the patient's progress.
--- NOTE | 2025-01-03 11:03 | W.PN.GS2 ---
Today's Communication / Plan
-
OR today
Assessment / Plan
-
This is a 79-year-old female who presents with right upper quadrant pain. Imaging, blood work, exam consistent with acute cholecystitis.
Will plan for laparoscopic cholecystectomy in the OR today.
N.p.o., IV fluids, IV antibiotics.
Risks/Benefits/Alternatives, expected postoperative course and possible complications (bleeding, infection, injury to surrounding structures, acute/chronic pain) discussed at length. Patient wishes to proceed with surgery. All questions answered.
Consent obtained.
I spent 50 minutes in total for the care of this patient today including direct patient care and counseling, reviewing labs, imaging, coordination of care, as well as documentation.
Time Spent
Total Time Spent with Patient (in minutes): 20
Subjective Data
-
Date of Service: January 03, 2025
Interval Events:
No acute events overnight. On oxygen now. Slept okay. Pain manageable. Denies Nausea/Vomiting.
Objective Data
-
Intake and Output
01/02/25 01/03/25 01/04/25
06:59 06:59 06:59
Intake Total 450 / 450 2079 / 2079
Output Total 300 / 300
Balance 450 / 450 1780 / 1780
Intake:
IV fluids (Total) 400 / 400 0 / 0
IV piggybacks 50 / 50 200 / 200
Output:
Urine, Voided 300 / 300
Other:
Number of approximated LARGE 1
amounts of urine
Vital Signs
Temp Pulse Resp BP Pulse Ox
98.2 F 85 18 153/88 96
01/03/25 07:40 01/03/25 08:46 01/03/25 07:40 01/03/25 08:46 01/03/25 08:45
Lab Results
01/03/25 07:14
01/03/25 07:14
Calcium 8.9 mg/dl (8.4-10.2) 01/03/25 07:14
Total Bilirubin 1.4 mg/dl (0.2-1.3) H 01/03/25 07:14
Direct Bilirubin 0.6 mg/dl (0.0-0.4) H 01/02/25 06:37
AST 23 U/L (14-36) 01/03/25 07:14
ALT 18 U/L (0-35) 01/03/25 07:14
Alkaline Phosphatase 77 U/L (38-126) 01/03/25 07:14
Total Protein 6.4 g/dl (6.3-8.2) 01/03/25 07:14
Albumin 3.3 g/dl (3.5-5.0) L 01/03/25 07:14
Physical Exam
-
GENERAL/NEURO: Awake, Alert, mild distress
CHEST: Unlabored breathing on nasal cannula 4 L
ABDOMEN: Soft, obese, tender to palpation in the right upper quadrant
Patient has a mak catheter: No
Patient has a central line: No
--- NOTE | 2025-01-03 11:21 | W.SUR.PREOP ---
Pre-Operative Surgical Note
-
I have examined this patient prior to the performance of the scheduled procedure.
The patient's condition is unchanged from the time of the current History and
Physical and the patient is able to undergo the scheduled procedure.
[2025-01-03] MEDS: ZOSYN IV (12:08)
--- NOTE | 2025-01-03 13:42 | W.IMMPOSTOP ---
Surgical Immed Post Op Note
-
Primary Surgeon: Vivek Bridges MD
Assisting Surgeon: None
Pre-op Diagnosis: Acute cholecystitis
Post-op Diagnosis: Gangrenous cholecystitis
Procedure Performed:
1. Laparoscopic cholecystectomy with cholangiogram
2. Drainage of an intra-abdominal abscess
Anesthesia Type: General
Specimen / Cultures: Gallbladder and contents
Estimated Blood Loss: 23 cc
Complications: None
Operative Findings: Gangrenous cholecystitis with contained abscess in the right upper quadrant. The overlying adhesions were carefully taken down using a laparoscopic bipolar energy device. Due to the inflammation of the cystic triangle we
elected to do a top-down cholecystectomy and the gallbladder was entered with evacuation of purulent bile. There are multiple small black oxalate gallstones which were suctioned up. The cystic duct orifice was identified and cannulated but an
intraoperative cholangiogram could not be performed due to leak. As we tunnelled down further towards the cystic duct I was able to encircle the ostium and a repeat cholangiogram was performed which showed a small cystic duct leading to an intact
CBD with no distal filling defects though it was somewhat difficult to ascertain how brisk the duodenum filled. The catheter was removed and the duct was ligated with a 0 PDS Endoloop. Due to the overall inflammation of the field Floseal was used
and a 19 Yi round drain was introduced through the right lateralmost port and draped across the field and secured to the skin with a 2-0 nylon suture. No residual stones were left behind at the end the case after inspection of the right upper
quadrant. All Ray-Miguelito's that had been introduced to assist with the dissection were removed.
POST OP PLAN:
Imaging: [None]
Labs: [Routine AM]
Diet: Clears, anticipate ileus
Analgesia: Tylenol 650mg q6 Felipe, Dilaudid 0.5mg q2h PRN
Neuro/vascular checks: Per unit protocol
AC/AP: [Hold Therapeutic AC], Ok for DVT PPx
Activity: [Ad Mag]
Wound/Incisions/Drains: [Routine]
Abx: Zosyn or equivalent x 4 days
Dispo: [RNF]
--- NOTE | 2025-01-03 16:14 | W.PN.HOSP.TC ---
Today's Communication/Plan
-
Antibiotics. Postop
Assessment / Plan
Assessment / Plan
Physical exam:
General: Acutely ill
HEENT: Normocephalic, Atraumatic and Moist Mucous Membranes
Respiratory: Decreased breath sounds bilateral; Clear to Auscultation; Negative Wheezes, Rales or Rhonchi
Cardiac: Regular Rhythm and S1/S2
GI: Soft, Postop findings, Tender and Nondistended. Bowel sounds hyperdynamic
Musculoskeletal: No Clubbing, No Cyanosis and No Edema
Neuro: Awake, Alert and Oriented, no neurological deficit
Psych: Calm
A/P:
Acute cholecystitis:
Lap artur today
Continue postop care
Continue IV antibiotics
Stop IV fluids
Discussed with daughter at bedside
Abnormal chest x-ray:
Likely due to technique but cannot rule out atelectasis and/or volume overload
Check BNP
Stop IV fluid
Add guaifenesin
Incentive spirometry
Consider either repeat chest x-ray or obtain echocardiogram depending on clinical course
Hypertension:
Continue lisinopril
DVT prophylaxis:
Heparin SQ
CODE STATUS:
Full code
Time spent 36-minute
Anticipated Discharge: 24 - 48 hours
Subjective/Interval History
-
Date of Service: January 03, 2025
Seen postop. Postop abdominal discomfort. Mild short of breath and increased secretions ongoing prior to surgery.
Objective Data
-
Labs:
Laboratory Results
01/03/25
07:14
WBC 12.8 H
Hgb 11.8 L
Hct 35.4 L
Plt Count 89 L
PT 15.7 H
INR 1.22
APTT 31.4
Sodium 139
Potassium 3.7
Chloride 106
Carbon Dioxide 26
BUN 18 H
Creatinine 0.9
Glucose 88
Calcium 8.9
Total Bilirubin 1.4 H
AST 23
ALT 18
Alkaline Phosphatase 77
Vital Signs:
Vital Signs
Temp Pulse Resp BP Pulse Ox
97.9 F 80 18 152/89 95
01/03/25 16:00 01/03/25 16:00 01/03/25 16:00 01/03/25 16:00 01/03/25 16:00
I&O
01/02/25 01/03/25 01/04/25
06:59 06:59 06:59
Intake Total 450 / 450 0 / 0 540 / 540
Output Total 300 / 300
Balance 450 / 450 1780 / 1780 540 / 540
--- NOTE | 2025-01-03 16:25 | PTCARENOTE ---
pt sent to OR this morning via bed @1002. pt returned from PACU via bed to 2S room 2116 @1600.
4 lap sites MICHAEL w/glue. RLQ GENARO drain patent w/dressing intact, serosanguineous output noted. daughter at bedside. pt informed diet is clear liquids. tolerating sips of water at present. care ongoing.
[2025-01-03] MEDS: NSS IV (16:31)
--- NOTE | 2025-01-03 17:00 | OR.RPT ---
Operative Report
Operative Report
Patient Name: Jyoti Nielsen
: 1945
Date of Operation: 01/03/2025
Preoperative Diagnosis: Acute cholecystitis
Postoperative Diagnosis: Gangrenous cholecystitis
Procedure(s):
Laparoscopic Cholecystectomy with Cholangiogram +22 modifier
Surgeon(s):
Dr. Bridges
Senior User Experience Architect(s):
None
Anesthesia: General
Estimated Blood Loss: 23 cc
Urine Output: None
Drains/Lines/Implants: 19 Portuguese round Keven drain
Specimens:
1. Gallbladder and contents
HPI/Surgical Indications:
This is a 79-year-old female who presents with 2 days of abdominal pain. Exam, labs and imaging are consistent with acute cholecystitis. Risks/Benefits/Alternatives were discussed at length, and the patient agreed to proceed with surgery.
Operative Findings: Gangrenous cholecystitis. The overlying adhesions were carefully taken down using a laparoscopic bipolar energy device. Due to the inflammation of the cystic triangle we elected to do a top-down cholecystectomy and the
gallbladder was entered with evacuation of purulent bile. There are multiple small black oxalate gallstones which were suctioned up. The cystic duct orifice was identified and cannulated but an intraoperative cholangiogram could not be performed
due to leak. As we tunnelled down further towards the cystic duct I was able to encircle the ostium and a repeat cholangiogram was performed which showed a small cystic duct leading to an intact CBD with no distal filling defects though it was
somewhat difficult to ascertain how brisk the duodenum filled. The catheter was removed and the duct was ligated with a 0 PDS Endoloop. Due to the overall inflammation of the field Floseal was used and a 19 Portuguese round drain was introduced
through the right lateralmost port and draped across the field and secured to the skin with a 2-0 nylon suture. No residual stones were left behind at the end the case after inspection of the right upper quadrant. All Ray-Miguelito's that had been
introduced to assist with the dissection were removed.
Procedure Description:
The patient was brought to the Operating Room and placed in the supine position with one arm tucked. Following uneventful induction of general endotracheal anesthesia, an orogastric tube was placed. The abdomen was prepped and draped in the usual
sterile fashion. A timeout was performed confirming the procedure, consent, and that IV antibiotics were infused and sequential compression devices were confirmed to be on. The abdomen was entered using a left subcostal Veress technique which
required a single pass followed by a 5 mm right upper quadrant Optiview trocar. Pneumoperitoneum to 15 mmHg pressure was obtained without difficulty and we confirmed that no injury had occurred during our entry. The patient was positioned in
reverse Trendelenberg and rotated with the right side up slightly. Two 5 mm trocars were then placed along the right subcostal margin, followed by a 12 mm port in the epigastrium. The gallbladder was noted to have significant adhesions and
gangrenous. The gallbladder was emptied using a decompressing needle through the fundus of the gallbladder with evacuation of hydrops before A locking grasping forceps was placed on the fundus of the gallbladder where it was then retracted cephalad
and to the right. Using appropriate grasping instruments, the peritoneum overlying the triangle of Calot was incised and extended superiorly on both the anterior and posterior gallbladder cobb. However the scar tissue in the triangle was dense so
we elected to do a top-down cholecystectomy up to the level of the duodenum wall which was carefully bluntly dissected off of the underlying infundibulum. A 4 x 4 Ray-Miguelito was introduced and a laparoscopic bipolar energy device was also used to
assist with hemostasis. The gallbladder had a significant amount of purulent bile which were suctioned out as well as numerous black oxalate stones which were removed or suctioned out. The cystic duct ostium was identified and initially we tried
to cannulate this however we were unable to get a successful cholangiogram. However I was able to get around the duct and free it up further allowing us to truly isolate the cystic duct and a ductotomy was made through which a cholangiogram was
performed.
It demonstrated short cystic duct with no filling defects in the biliary tree, no significant biliary dilation, and normal biliary anatomy. After removing the cholangiocatheter, the duct was controlled with a 0 PDS Endoloop. There was spillage of
infected bile and stones however this was all suctioned up until clear. The gallbladder was placed in an Endo Catch bag and removed along with 4 x 4 Ray-Miguelito. The back wall of the gallbladder was fulgurated. Surgiflo was applied to the surgical
bed to ensure hemostasis and a 19 Portuguese round Keven drain was introduced to the right lower quadrant port and passed across her field. This was secured to the skin with a 2-0 nylon suture. All remaining trocars were then removed and the
pneumoperitoneum was evacuated. The 12 mm trocar site was closed using 0 PDS suture. All trocar sites were closed at the skin level using 4-0 Monocryl followed by Dermabond. Overall, the patient tolerated the procedure well and was taken to the
Recovery Room postoperatively in stable condition.
I was the attending physician and performed the procedure with no assistance. I was present for all portions of the case.
A +22 modifier is being requested for this case as this involved significantly more effort, equipment and time compared to a normal cholecystectomy for acute cholecystitis.
Vivek Bridges MD
[2025-01-03] MEDS: MORPHINE SULFATE 2 MG IV (18:33)
[2025-01-03] MEDS: MUCINEX 600 MG PO (19:53)
[2025-01-04] VITALS (7 sets, daily range): BP systolic 140–163; BP diastolic 61–89; PULSE 85; O2SAT 95
[2025-01-04] MEDS: ZOSYN 50 IV ×4 (03:09→22:10)
[2025-01-04] MEDS: MORPHINE SULFATE 2 MG IV (04:28)
[2025-01-04 07:18] LABS: Hematocrit 34.1 % (37.0-47.0); Hemoglobin 11.4 g/dL (12.0-16.0); Mean Corp Hgb Conc. 33.4 g/dL (33.0-37.0); Mean Corpuscular Volume 93.4 fL (81.0-99.0); Nucleated Red Blood Cells % 0 %; Platelet Count 116 10^3/uL (130-400); Red Cell Dist. Width 12.9 % (11.5-14.5)
[2025-01-04 07:44] LABS: ALT (SGPT) 29 U/L (0-35); AST (SGOT) 40 U/L (14-36); Albumin 3.2 g/dl (3.5-5.0); Alkaline Phosphatase 98 U/L (38-126); Blood Urea Nitrogen 17 mg/dl (7-17); Calcium 8.6 mg/dl (8.4-10.2); Carbon Dioxide 26 mmol/L (22-30); Chloride 106 mmol/L (98-107); Estimated Creatinine Clearance 72 ml/min; Glucose 119 mg/dl (70-99); Potassium 3.7 mmol/L (3.5-5.1); Sodium 138 mmol/L (135-145); Total Protein 6.3 g/dl (6.3-8.2); eGFR > 60.00
--- NOTE | 2025-01-04 09:32 | W.PN.GS2 ---
Today's Communication / Plan
-
Wean O2
Assessment / Plan
-
This is a 79-year-old female who presents with right upper quadrant pain. Imaging, blood work, exam consistent with acute cholecystitis.
POD #1 for a laparoscopic cholecystectomy with cholangiogram for gangrenous cholecystitis.
Will advance to a regular diet.
Continue antibiotics x 4 days.
Incentive spirometry
Anticipate discharge as early as tomorrow if we are able to wean her off oxygen.
General surgery will continue to follow.
Discharge instructions updated
Time Spent
Total Time Spent with Patient (in minutes): 20
Subjective Data
-
Date of Service: January 04, 2025
Interval Events:
No acute events overnight. Slept well. Pain Controlled. Denies Nausea/Vomiting, +bowel function. Tolerating diet.
Objective Data
-
Intake and Output
01/03/25 01/04/25 01/05/25
06:59 06:59 06:59
Intake Total 2080 / 2080 1170 / 1170
Output Total 300 / 300 540 / 540
Balance 1780 / 1780 630 / 630
Intake:
Oral fluids 720 / 720
IV fluids (Total) 1880 / 1880 300 / 300
Normosal 300 / 300
IV piggybacks 200 / 200 150 / 150
Output:
Drain Output (Total) 90 / 90
Right Lower Abdomen 90 / 90
Urine, Voided 300 / 300 450 / 450
Other:
Number of approximated MODERATE 1
amounts of urine
Number of approximated LARGE 1
amounts of urine
Vital Signs
Temp Pulse Resp BP Pulse Ox
98.9 F 75 18 141/87 94
01/04/25 07:20 01/04/25 07:20 01/04/25 07:20 01/04/25 07:20 01/04/25 07:20
Lab Results
01/04/25 06:38
01/04/25 06:38
Calcium 8.6 mg/dl (8.4-10.2) 01/04/25 06:38
Total Bilirubin 0.8 mg/dl (0.2-1.3) 01/04/25 06:38
Direct Bilirubin 0.6 mg/dl (0.0-0.4) H 01/02/25 06:37
AST 40 U/L (14-36) H 01/04/25 06:38
ALT 29 U/L (0-35) 01/04/25 06:38
Alkaline Phosphatase 98 U/L (38-126) 01/04/25 06:38
Total Protein 6.3 g/dl (6.3-8.2) 01/04/25 06:38
Albumin 3.2 g/dl (3.5-5.0) L 01/04/25 06:38
Physical Exam
-
GENERAL/NEURO: Awake, Alert, no distress
CHEST: Unlabored breathing on nasal cannula
ABDOMEN: Soft, appropriately tender, Non-Distended, obese, incisions clean dry and intact. GENARO with serosanguineous output.
Patient has a mak catheter: No
Patient has a central line: No
--- NOTE | 2025-01-04 10:15 | PN.CDI ---
CDI
- -
CDI:
Physician Documentation Request
Admit Date: 01/01/25 23:40
Dear Doctor Colin,
Patient admitted with acute cholecystitis.
01/03 Op report, 'Gangrenous cholecystitis....Laparoscopic Cholecystectomy.'
Hgb levels documented below:
Laboratory Tests
01/01/25 01/02/25 01/03/25
15:21 06:37 07:14
Hgb 14.2 13.2 11.8 L
01/04/25
06:38
Hgb 11.4 L
Based on the above, could you clarify, in your progress note, which of the following is the most likely diagnosis you are evaluating, monitoring and/or treating?
Acute blood loss anemia
Insignificant abnormal lab finding
Other
Use of terms such as suspected, likely, concern for, or probable (associated with a specific diagnosis that is being evaluated, monitored, or treated as if it exists) are acceptable and can be coded in the inpatient setting, when documented at the
time of discharge.
Thank you,
Aiyana CARRILLO,RN,CCDS
CDI Specialist
Available via tiger text
Please use your independent medical judgment in providing your response.
[2025-01-04] MEDS: HEPARIN 5000 UNITS SC ×2 (10:19→19:48)
[2025-01-04] MEDS: ZESTRIL 20 MG PO (10:21)
[2025-01-04] MEDS: MUCINEX 600 MG PO ×2 (10:21→19:47)
--- NOTE | 2025-01-04 10:34 | PTOTSP ---
Needs new orders for PT and OT post-op per protocol s/p cholecystectomy under general anesthesia.
--- NOTE | 2025-01-04 10:58 | W.PN.HOSP.TC ---
Addendum entered and electronically signed by Suman Shaw MD 01/04/25 13:02:
Acute blood loss anemia
Original Note:
Today's Communication/Plan
-
Antibiotics. Postop care. PT OT
Assessment / Plan
Assessment / Plan
Physical exam:
General: No acute distress
HEENT: Normocephalic, Atraumatic and Moist Mucous Membranes
Respiratory: Decreased breath sounds bilateral; Clear to Auscultation; Negative Wheezes, Rales or Rhonchi
Cardiac: Regular Rhythm and S1/S2
GI: Soft, Postop findings, Tender and Nondistended. Normal bowel sounds
Musculoskeletal: No Clubbing, No Cyanosis and No Edema
Neuro: Awake, Alert and Oriented, no neurological deficit
Psych: Calm
A/P:
Acute cholecystitis:
Lap artur on 01/03
Continue postop care
Continue IV antibiotics
Off IV fluids
Advancing to regular diet
PT OT eval
Discussed with daughter at bedside again today
Abnormal chest x-ray:
Follow-up chest x-ray today less CHF features and more atelectasis
BNP only minimally elevated and she does not examine as heart failure at the moment.
Continue incentive spirometry
Pending echocardiogram
Hypoxia:
Likely related to atelectasis
Oxygen supplementation
Incentive spirometry
Bacteriuria:
No need to treat but on antibiotics perioperative
Hypertension:
Continue lisinopril
DVT prophylaxis:
Heparin SQ
CODE STATUS:
Full code
Time spent 37-minutes
Anticipated Discharge: Within 24 hours
Subjective/Interval History
-
Date of Service: January 04, 2025
Patient not moving around much. Less shortness of breath. On 2 L of oxygen. Postop soreness. No chest pain. She had bowel movements.
Objective Data
-
Labs:
Laboratory Results
01/04/25
06:38
WBC 12.3 H
Hgb 11.4 L
Hct 34.1 L
Plt Count 116 L D
Sodium 138
Potassium 3.7
Chloride 106
Carbon Dioxide 26
BUN 17
Creatinine 0.7
Glucose 119 H
Calcium 8.6
Total Bilirubin 0.8
AST 40 H
ALT 29
Alkaline Phosphatase 98
Vital Signs:
Vital Signs
Temp Pulse Resp BP Pulse Ox
98.9 F 75 18 141/87 94
01/04/25 07:20 01/04/25 07:20 01/04/25 07:20 01/04/25 07:20 01/04/25 07:20
I&O
01/03/25 01/04/25 01/05/25
06:59 06:59 06:59
Intake Total 2079 / 2079 1170 / 1170
Output Total 300 / 300 540 / 540
Balance 1779 / 1779 630 / 630
--- NOTE | 2025-01-04 14:56 | CM ---
Reviewed the chart notes. Patient is s/p POD#1 laparoscopic cholecystectomy with cholangiogram for gangrenous cholecystitis. PT/OT evaluations pending for discharge planning purposes. CM continues to be available to patient/family and is
monitoring medical plan for needs at discharge.
Plan: Discharge plans will depend on the patient's progress. Patient with abdominal drain.
[2025-01-04] MEDS: TORADOL 15 MG IV (17:00)
[2025-01-05] MEDS: ZOSYN 50 IV ×2 (04:10→10:57)
[2025-01-05] MEDS: DUONEB 3 ML INH (04:17)
[2025-01-05] MEDS: TYLENOL 650 MG PO (04:33)
[2025-01-05 07:45] VITALS: BP 144/76
[2025-01-05 07:53] LABS: Hematocrit 34.1 % (37.0-47.0); Hemoglobin 11.4 g/dL (12.0-16.0); Mean Corp Hgb Conc. 33.4 g/dL (33.0-37.0); Mean Corpuscular Volume 92.9 fL (81.0-99.0); Platelet Count 120 10^3/uL (130-400); Red Cell Dist. Width 13.1 % (11.5-14.5)
[2025-01-05 08:06] LABS: Blood Urea Nitrogen 23 mg/dl (7-17); Calcium 8.9 mg/dl (8.4-10.2); Carbon Dioxide 24 mmol/L (22-30); Chloride 107 mmol/L (98-107); Estimated Creatinine Clearance 56 ml/min; Glucose 129 mg/dl (70-99); Potassium 3.3 mmol/L (3.5-5.1); Sodium 138 mmol/L (135-145); eGFR > 60.00
[2025-01-05] MEDS: HEPARIN 5000 UNITS SC (08:47)
[2025-01-05] MEDS: TORADOL 15 MG IV (08:48)
[2025-01-05] MEDS: MUCINEX 600 MG PO (08:48)
[2025-01-05] MEDS: ZESTRIL 20 MG PO (08:48)
--- NOTE | 2025-01-05 11:10 | W.PN.HOSP.TC ---
Today's Communication/Plan
-
Discharge planning
Assessment / Plan
Assessment / Plan
Physical exam:
General: No acute distress
HEENT: Normocephalic, Atraumatic and Moist Mucous Membranes
Respiratory: Decreased breath sounds bilateral; Clear to Auscultation; Negative Wheezes, Rales or Rhonchi
Cardiac: Regular Rhythm and S1/S2
GI: Soft, Postop findings, Mild Tender and Nondistended. Normal bowel sounds
Musculoskeletal: No Clubbing, No Cyanosis and No Edema
Neuro: Awake, Alert and Oriented, no neurological deficit
Psych: Calm
A/P:
Acute cholecystitis:
Lap artur on 01/03
Continue postop care
Change antibiotics to oral
Off IV fluids
Tolerating regular diet
PT OT eval
Discussed with daughter at bedside again yesterday
Can go home today if cleared by surgery
Abnormal chest x-ray:
Follow-up chest x-ray yesterday and less CHF features and more atelectasis
BNP only minimally elevated and she does not examine as heart failure at the moment.
Continue incentive spirometry
Reviewed echocardiogram
Hypoxia:
Likely related to atelectasis
Oxygen supplementation
Incentive spirometry
Bacteriuria:
No need to treat but on antibiotics perioperative
Hypertension:
Continue lisinopril
DVT prophylaxis:
Heparin SQ
CODE STATUS:
Full code
Time spent 35-minutes
Anticipated Discharge: Today
Subjective/Interval History
-
Date of Service: January 05, 2025
Patient feels better today. Off oxygen. Afebrile
Objective Data
-
Labs:
Laboratory Results
01/05/25
06:56
WBC 7.9
Hgb 11.4 L
Hct 34.1 L
Plt Count 120 L
Sodium 138
Potassium 3.3 L
Chloride 107
Carbon Dioxide 24
BUN 23 H
Creatinine 0.9
Glucose 129 H
Calcium 8.9
Vital Signs:
Vital Signs
Temp Pulse Resp BP Pulse Ox
97.7 F 79 18 144/76 96
01/05/25 07:45 01/05/25 07:45 01/05/25 07:45 01/05/25 07:45 01/05/25 07:45
I&O
01/04/25 01/05/25 01/06/25
06:59 06:59 06:59
Intake Total 1170 / 1170 630 / 630
Output Total 540 / 540 30 / 30
Balance 630 / 630 600 / 600
[2025-01-05] MEDS: KCL 40 MEQ PO (11:13)
[2025-01-05 11:33] VITALS: BP 145/79; PULSE 85; O2SAT 94
--- NOTE | 2025-01-05 11:40 | CM ---
Reviewed the chart notes and spoke with the patient and her daughters at the bedside. IMM reviewed. CM continues to be available to patient/family and is monitoring medical plan for needs at discharge.
Plan: Discharge to home with [facility] services. Referral sent in [facility].
--- NOTE | 2025-01-05 12:09 | W.DCSUMMARY ---
Discharge Summary
Discharge Data
Date of Admission: 01/01/25
Date of Discharge: 01/05/25
Total time spent discharging patient (in min): 35
-
Pending Results: No
Hospital Course
Patient is 79 years old female with history of Lucia, peripheral neuropathy, obesity, hypertension, came into the hospital with abdominal pain and found to have acute cholecystitis. Patient was started on antibiotics and bowel rest. Surgery
consulted. Patient was taken to the operating room and had a laparoscopic cholecystectomy with cholangiogram on 01/03. Perioperative she had some hypoxia felt to be related to atelectasis and after incentive spirometry and increase activity her
hypoxia resolved. She had an echocardiogram with normal EF. Patient also had mild postop acute blood loss anemia and she did not require any blood transfusions. Patient has participated with PT and OT. We asked case worker to help with visiting
nurses up at discharge. Otherwise, patient is hemodynamically stable and afebrile and feeling much improved. Surgery has cleared her for discharge. She will be discharged in stable condition today.
Discharge duration: 35 minutes
Discharge Plan
-
Patient Disposition: Home with Home Care
Discharge Diagnosis/Procedures: Acute cholecystitis. Laparoscopic cholecystectomy
Diet: No restrictions
Activity: No strenuous activity
Driving Restrictions: As prior to admission
Bathing Restrictions: OK to Shower
Blood Work: Please PCP to order CBC, BMP within 1 week
Activity Restrictions/Additional Instructions:
Instructions following Laparoscopic Cholecystectomy
Please call [phone] if you have any questions or concerns after your surgery.
Wound Care:
Your incisions are covered with skin glue which will come off on its own in 5-10 days.
It is ok to shower the day after your surgery. Do not scrub the incisions, let soap and water wash over them and pat dry.
� Bruising around your incisions is normal.
� Using ice packs will help minimize this swelling.
� No swimming or soaking incisions for 1 week.
� Your stitches will dissolve and do not need to be removed.
Urinary retention:
If you are unable to urinate 6-8 hours after your surgery, please call [phone] to discuss further management.
Activity:
No heavy lifting more than 15 pounds for the next 3 weeks, then you may gradually lift heavier objects as tolerated by discomfort. Otherwise activity as tolerated by your comfort level.
Pain Management:
Use Tylenol, ibuprofen and ice packs to treat your pain.
� You may take 650 milligrams of Tylenol (Max 3 grams per day) every 6 hours, and 600 mg of ibuprofen also every 6 hours. (you can alternate them every 3 hours)
� You may use an ice pack to your incision as needed.
� If you still have pain not controlled by these measures, take your prescription pain medication as prescribed.
Medications:
You may resume your home medications.
Bowel Medications:
Prescription pain medication can make you constipated. If you take this medication, also take colace 100 mg twice daily (this is over the counter). If this is not sufficient, you may take Miralax (polyethylene glycol) to help move your bowels.
Diet:
After your procedure, there are no dietary restrictions. However, you may notice some loose stools with fatty meals for up to 4 weeks after surgery. If this is the case, please adjust to a low fat diet as needed.
Driving restrictions:
No driving if you are taking prescription pain medication or if you think your normal reaction time and attentiveness has been slowed by your surgery.
Things to Look out for:
Worsening Abdominal pain, fever, jaundice, redness or drainage from incision
Call Doctor for:
Please call if you notice worsening redness or drainage from incision(s) lasting longer than 5 days after your surgery, any foul-smelling drainage from the incision, pain not controlled by pain medications, persistent nausea and vomiting, or for any
fevers greater than 101.3 F. The number for questions/concerns is [phone]
Follow-up:
A follow-up appointment will be scheduled with your surgeon in 3-4 weeks. Please call prior to your appointment if you have any questions or concerns. [phone]
Referrals:
Maurizio Blake, DO [Family Provider, Family Practice] - in less than 1 week
Vivek Bridges MD [Active, Surgical]
Prescriptions:
New
tramadol 50 mg Tablet
50 mg PO Q6HPRN PRN (Reason: severe pain) Qty: 14 0RF
Continued
lisinopril 20 mg Tablet
20 mg PO DAILY
Rx Instructions:
pt has been noncompliant for several months
Discharge Orders:
Discharge Patient (As Directed); Ordered 01/05/25
Ordered By: Suman Shaw
Discharge Date and Time
Discharge Date/Time: 01/05/25 14:20
Print Language: PASHTO
--- NOTE | 2025-01-05 13:02 | W.PN.GS2 ---
Today's Communication / Plan
-
Dispo planning
Assessment / Plan
-
This is a 79-year-old female who presents with right upper quadrant pain. Imaging, blood work, exam consistent with acute cholecystitis.
POD #2 for a laparoscopic cholecystectomy with cholangiogram for gangrenous cholecystitis.
Will advance to a regular diet.
Continue antibiotics x 4 days.
Incentive spirometry
Will DC GENARO drain prior to discharge
Discharge instructions updated
Time Spent
Total Time Spent with Patient (in minutes): 20
Subjective Data
-
Date of Service: January 05, 2025
Interval Events:
No acute events overnight. Slept well. Pain Controlled. Denies Nausea/Vomiting, +bowel function. Tolerating diet.
Objective Data
-
Intake and Output
01/04/25 01/05/25 01/06/25
06:59 06:59 06:59
Intake Total 1170 / 1170 630 / 630 240 / 240
Output Total 540 / 540 30 / 30
Balance 630 / 630 600 / 600 240 / 240
Intake:
Oral fluids 720 / 720 480 / 480 240 / 240
IV fluids (Total) 300 / 300 50 / 50
Normosal 300 / 300
IV piggybacks 150 / 150 100 / 100
Output:
Drain Output (Total) 90 / 90 30 / 30
Right Lower Abdomen 90 / 90 30 / 30
Urine, Voided 450 / 450
Other:
How many times incontinent 1
MODERATE amount urine
Number of approximated SMALL 2
amounts of urine
Number of approximated MODERATE 1 2
amounts of urine
Vital Signs
Temp Pulse Resp BP Pulse Ox
97.7 F 79 18 144/76 96
01/05/25 07:45 01/05/25 07:45 01/05/25 07:45 01/05/25 07:45 01/05/25 07:45
Lab Results
01/05/25 06:56
01/05/25 06:56
Calcium 8.9 mg/dl (8.4-10.2) 01/05/25 06:56
Total Bilirubin 0.8 mg/dl (0.2-1.3) 01/04/25 06:38
Direct Bilirubin 0.6 mg/dl (0.0-0.4) H 01/02/25 06:37
AST 40 U/L (14-36) H 01/04/25 06:38
ALT 29 U/L (0-35) 01/04/25 06:38
Alkaline Phosphatase 98 U/L (38-126) 01/04/25 06:38
Total Protein 6.3 g/dl (6.3-8.2) 01/04/25 06:38
Albumin 3.2 g/dl (3.5-5.0) L 01/04/25 06:38
Physical Exam
-
GENERAL/NEURO: Awake, Alert, no distress
CHEST: Unlabored breathing on RA
ABDOMEN: Soft, Non-Tender, Non-Distended, incisions clean dry and intact
Patient has a mak catheter: No
Patient has a central line: No
== END 2025-01-05 14:20 | disposition home health service (06) | DRG 853 ==
LOC: 2 SOUTH 23:40
PROVIDERS: Clinical Nurse Specialist Family Health; Emergency Medicine; Internal Medicine; Physician Assistant; Radiology Neuroradiology; Surgery; ADMITTING PHYSICIAN Hospitalist; ATTENDING PHYSICIAN Hospitalist; CONSULT PHYSICIAN Surgery; EMERGENCY PHYSICIAN Emergency Medicine; FAMILY PHYSICIAN Family Medicine
PROC: 0FT44ZZ Resection of Gallbladder, Percutaneous Endoscopic Approach (ICD-10-PCS; 2025-01-03)
PROC: BF131ZZ Fluoroscopy of Gallbladder and Bile Ducts using Low Osmolar Contrast (ICD-10-PCS; 2025-01-03)
DX: A41.9 Sepsis, unspecified organism (principal); K65.1 Peritoneal abscess; K80.00 Calculus of gallbladder with acute cholecystitis without obstruction; J98.11 Atelectasis; D62 Acute posthemorrhagic anemia; I10 Essential (primary) hypertension; G62.9 Polyneuropathy, unspecified; R29.6 Repeated falls; E66.811 Obesity, class 1; N28.1 Cyst of kidney, acquired; K57.90 Diverticulosis of intestine, part unspecified, without perforation or abscess without bleeding; R16.0 Hepatomegaly, not elsewhere classified; R09.02 Hypoxemia; K66.0 Peritoneal adhesions (postprocedural) (postinfection); K75.81 Nonalcoholic steatohepatitis (NASH); K82.A1 Gangrene of gallbladder in cholecystitis; R26.2 Difficulty in walking, not elsewhere classified; Z91.148 Patient's other noncompliance with medication regimen for other reason; Z79.899 Other long term (current) drug therapy; Z68.32 Body mass index [BMI] 32.0-32.9, adult
CPT/HCPCS: 71045; 71046; 74177; 74300; 76000; 76700; 80048; 80053; 80061; 81003; 81015; 82248; 83605; 83615; 83690; 83880; 84484; 85025; 85027; 85045; 85610; 85730; 86850; 86900; 86901; 87086; 88304; 93005; 93306; 94640; 94760; 96361; 96365; 96375; 96376; 97163; 97164; 97166; 97535; 99285; A4300; Q9967

== ENCOUNTER 2025-02-16 13:44 | Emergency (ER) | payer OTHER, SELFPAY ==
[2025-02-16 13:59] VITALS: BP 122/73
[2025-02-16] MEDS: TYLENOL 650 MG PO (14:51)
--- NOTE | 2025-02-16 15:02 | ED.GENMED ---
History of Present Illness
General
Chief Complaint: Fall
Source: patient and family
Exam Limitations: none
Time Seen by Provider: 02/16/25 14:31
Nursing documentation reviewed up to this point in time: agreed with
History of Present Illness
History of Present Illness:
Patient presents ED secondary to persistent right foot pain with swelling, after injury at home this afternoon. Patient who normally utilizes wheelchair, as well as walker at home, had stood up and was reaching for something on the floor, when she
lost balance and fell onto her knees. In the process, her right toes got bent and turned inward. Denies any other injuries from the accident. Denies loss of sensation or weakness. Patient reports increased foot swelling, along with pain when
bearing weight.
Past History
Past History
ED Past Medical History: HTN, Other ([facility]-stopped going to [facility] at [facility] few yrs ago) and Other (neuropathy, balance problems)
ED Past Surgical History: Gynecological and Orthopedic
Social History
Tobacco: Non-smoker
Alcohol: None
Drug: None
Personal:
Living: with family
Employment: Employed
Family History
Family History: Hypertension
Review of Systems
Review of Systems
Allergies reviewed?: Yes
All Other Systems: ROS reviewed and negative except as documented in HPI and ROS
Constitutional: Reports no symptoms; Denies fever
Musculoskeletal: Reports other (Foot pain with swelling)
Skin: Reports no symptoms
Neurological: Reports no symptoms
Phy Exam
Physical Exam
Physical Exam:
Physical Exam
General: mild painful distress, not acutely ill. afebrile
Head: nc/at. eomi
Neck: supple. normal range of motion
Neuro: alert and oriented x 3. no focal neurological deficits
Skin: no rash
Psychiatric: well kept. interactive and cooperative
Extremities: right foot - mild diffuse swelling noted with tenderness, petros lateral aspect of distal foot, without ecchymosis/erythema/open wound/deformity
Course
Orders/Labs/Results
Orders:
Orders
02/16/25 14:03
Foot, Right 3 View [CR Foot - Right Min 3 Views] Urgent
Comment:
Reason For Exam: pain
02/16/25 14:48
Acetaminophen [Tylenol] 650 mg .ROUTE .STK-MED ONE
02/16/25 14:51
Acetaminophen [Tylenol] 650 mg PO NOW STA
Vital Signs
Initial and Last Documented VS:
Initial Vital Signs
Temp Pulse Resp BP Pulse Ox
98.0 F 83 18 122/73 98
02/16/25 13:59 02/16/25 13:59 02/16/25 13:59 02/16/25 13:59 02/16/25 13:59
Last Documented Vital Signs
Temp Pulse Resp BP Pulse Ox
98.0 F 69 20 114/79 98
02/16/25 13:59 02/16/25 15:20 02/16/25 15:20 02/16/25 15:20 02/16/25 15:20
MDM/Problems Addressed
MDM/Problems Addressed:
Foot x-ray report reviewed and discussed with patient and family. History and exam consistent with likely mild foot sprain, without any evidence of acute fracture. Patient otherwise remains neurovascular intact. Ricardo wrap will be provided for
comfort, along with ice, with recommendation to follow-up with PCP for reevaluation. Patient otherwise is well-appearing, at time of discharge, to the care of of her daughter, who lives in the same household
*Pulse Oximetry
SaO2: 98
Oxygen Mode of Delivery: Room air
Patient hypoxic: no
*Critical Care Note
Total Time (30-74mins, 75-104mins- exclusive of procedures): Not Applicable
ED Attending Note
-
Portions of this chart may have been created with voice recognition software.� Occasional wrong word or��sound alike� substitutions may have occurred due to the inherent limitations of voice recognition software.
Discharge Plan
Departure
Patient Disposition: Home (Routine Discharge)
Date of Disposition: 02/16/25
Time of Disposition: 15:02
Patient with high blood pressure during this ER visit?: Yes
Condition: Good
Discharge Problem:
Foot sprain
Instructions: Foot sprain - ED (DC)
Prescriptions:
No Action
lisinopril 20 mg Tablet
20 mg PO DAILY
Rx Instructions:
pt has been noncompliant for several months
tramadol 50 mg Tablet
50 mg PO Q6HPRN PRN (Reason: severe pain) Qty: 14 0RF
Referrals:
Maurizio Blake, DO [Family Provider, Family Practice]
Activity Restrictions/Additional Instructions:
As discussed, please follow-up with your primary care physician for reevaluation.
Interventions
Interventions:
*Risk Screen - Suicide Last Done: 02/16/25 13:59
*General Assessment Last Done: 02/16/25 13:59
*Neglect/Abuse Screening Last Done: 02/16/25 15:00
*ED COVID-19 Vaccine History Last Done: 02/16/25 15:00
*ED Influenza Vaccine History Last Done: 02/16/25 15:00
*Nursing Disposition Last Done: 02/16/25 15:20
ED-Skin Assessment Last Done: 02/16/25 15:00
ED- Neurological Assessment Last Done: 02/16/25 15:00
ED-Musculoskeletal Assessment Last Done: 02/16/25 15:00
Discharge Date and Time
Discharge Date/Time: 02/16/25 15:22
Print Language: VIET[place]ESE
[2025-02-16 15:20] VITALS: BP 114/79
== END 2025-02-16 15:22 | disposition home or self-care (01) ==
LOC: EMR 13:44
PROVIDERS: EMERGENCY PHYSICIAN Emergency Medicine; FAMILY PHYSICIAN Family Medicine
DX: S93.601A Unspecified sprain of right foot, initial encounter (principal); W18.39XA Other fall on same level, initial encounter; I10 Essential (primary) hypertension
CPT/HCPCS: 99283; 73630